=== PATIENT | female | born 1990 | race Hispanic/Latino ===

== ENCOUNTER 2018-02-20 13:57 | Day surgery (SDC) | payer OTHER, SELFPAY ==
[2018-02-20] VITALS (7 sets, daily range): BP systolic 106–129; BP diastolic 77–89; PULSE 65–88; RESP 10–16; TEMP 36.1–36.7; O2SAT 98–100; BMI 25.7; BMI 25.9
[2018-02-20] MEDS: LACTATED RINGERS 1,000 ML 21 ML IV (14:28)
--- NOTE | 2018-02-20 14:44 | PM.PREOP ---
Pre-operative Note Interval Note Pre-op Check: Yes History & Physical Reviewed by Physician and Yes Exam Performed Changes: No H&P completed within 30 days and has changed as indicated here:: 02/19/18 office note
--- NOTE | 2018-02-20 15:26 | SUR.OPER ---
Lithotomy on padded OR bed, head on pillow, arms secured on padded arm boards at <90 degrees abduction. Legs secured in padded yellow fins stirrups.
--- NOTE | 2018-02-20 15:39 | PM.OP.1 ---
Operative Date/Time/Diagnoses Date of procedure: 02/20/18 Time of procedure: 15:39 Pre-op diagnosis: Retained IUD Post-op diagnosis: same Procedure & Clinicians Procedure: Hysteroscopy with removal of IUD Same procedure as scheduled: Yes Indications: Retained IUD unable to remove in the office Surgeon: Fatou García Click Yes if Unassisted: Yes Anesthesia Type: General Operative Notes Findings: IUD inside uterus otherwise normal findings Closure Type: not applicable Specimen(s): none sent Estimated Blood Loss (mL): 5 Blood products transfused: none Procedure in detail: Patient was brought to the operating room where she underwent general anesthesia. She was placed in Yellofin stirrups and prepped and draped in usual sterile fashion. Antibiotics were not indicated. Warming was in place and pulsatile stockings were in place. Before the start of the procedure a check system was reviewed with the staff in the room. The bladder was drained with an in-and out catheter. A single-tooth tenaculum was placed on the anterior lip of the cervix and the cervix dilated to a # 10 Hegar dilator. The hysteroscope was placed through the cervix into the uterus with saline running in. The IUD strings were found and grasped and the IUD removed without difficulty. Counts of instruments and sponges were correct. Patient went to recovery room in good condition. Complications: none Condition: stable Disposition: same day surgery Plan for aftercare: Home when awake and stable
== END 2018-02-20 17:15 | disposition home or self-care (01) ==
PROVIDERS: PCP Family Medicine; Visit Provider Specialist
PROC: 0UDB8ZZ Extraction of Endometrium, Via Natural or Artificial Opening Endoscopic (ICD-10-PCS; CPT 58558; principal; 2018-02-20 15:00)
PROC: (CPT 58579; 2018-02-20 15:00)
DX: Z30.432 Encounter for removal of intrauterine contraceptive device (principal)
CPT/HCPCS: 58579; 58562; J1100; J1885; J2405; J2704; J3010

== ENCOUNTER → 2018-08-14 15:20 | Outpatient (CLI) | payer OTHER, SELFPAY ==
[2018-08-14 16:25] LABS: Add Manual Diff / Slide Review NO; Basophils Absolute Auto 0 /uL (0-100); Basophils Percent Auto 0.5 % (0-2); Eosinophils Absolute Auto 100 /uL (0-450); Eosinophils Percent Auto 0.8 % (2-4); Hematocrit 39.5 % (36-46); Hemoglobin 13.4 g/dL (12.0-16.0); Lymphocytes Absolute Auto 1700 /uL (1100-4500); Lymphocytes Percent Auto 20.9 % (25-40); Mean Corpuscular Hemoglobin 29.7 PG (26-34); Mean Corpuscular Volume 87.5 fL (80-100); Monocytes Absolute Auto 700 /uL (0-900); Monocytes Percent Auto 7.8 % (3-14); Neutrophils Absolute Auto 5800 /uL (1500-7000); Platelet Count 255 X10^3/uL (150-400); Red Blood Cell Count 4.51 X10^6/uL (4.0-5.2); Red Cell Distribution Width 13.7 % (11.6-14.8); White Blood Cell Count 8.3 X10^3/uL (4.5-11.0)
[2018-08-14 17:29] LABS: HCG Quantitative /Beta subunit 164020 mIU/mL
== END ==
PROVIDERS: PCP Family Medicine; Visit Provider Family Medicine
DX: O02.1 Missed abortion (principal)
CPT/HCPCS: 36415; 84702; 85025

== ENCOUNTER 2018-08-19 09:55 | Day surgery (SDC) | payer OTHER, SELFPAY ==
[2018-08-18 08:40] VITALS: BMI 27.2
[2018-08-19] VITALS (8 sets, daily range): BP systolic 100–131; BP diastolic 65–77; PULSE 81–99; RESP 12–16; TEMP 36.3–36.8; O2SAT 95–100; BMI 26.6
--- NOTE | 2018-08-19 | PATH_ITS ---
[facility] Accession Number: [id number] . 01 Material submitted: . product of conception - POC . 02 Diagnosis: Products Of Conception, Removal: Chorionic villi present consistent with products of conception. BFI/08/21/2018 . 02 Electronically signed: . Elizabeth Perez MD, Pathologist NPI- [id number] . 01 Gross description: . Received in formalin are multiple fragments of carias spongy hemorrhagic tissue (56 grams, 12.5 x 9.5 x 1.5 cm in aggregate). No tissue is identified. Auth Specialist tissue submitted in cassettes A1-A4. ([id number]) /MRV . 02 Pathologist provided ICD-10: O02.1 . 02 CPT . 189831 Performed at: 01 [facility] [address] [id number] MD Nithin Noguera MD Phone: [phone] Performed at: 02 [facility] [id number] [place], [place] [id number] MD Elizabeth Perez MD Phone: [phone]
--- NOTE | 2018-08-19 10:19 | PM.PREOP ---
Pre-operative Note Interval Note History & Physical reviewed/Exam performed by Physician: Yes Changes to H&P: No H&P completed within 30 days and has changed as indicated here:: see out pt note 08/14/[address] Castillo
[2018-08-19] MEDS: LACTATED RINGERS 1,000 ML 42 ML IV (10:20)
[2018-08-19] MEDS: CEFAZOLIN 2 GM/100 ML FROZ.PIGGY IV (10:33)
--- NOTE | 2018-08-19 10:33 | SUR.PREOP ---
Blood sugar and scd ordered, not intended to be and verified with dr cortez.
--- NOTE | 2018-08-19 10:48 | SUR.OPER ---
Lithotomy on padded OR bed, head on pillow, arms secured on padded arm boards at <90 degrees abduction. Legs secured in padded yellow fins stirrups.
--- NOTE | 2018-08-19 11:06 | P.OP_ITS ---
Operative Date/Time/Diagnoses Date of procedure: 08/19/18 Time of procedure: 11:03 Pre-op diagnosis: Missed AB with possible molar Post-op diagnosis: same Procedure & Clinicians Procedure: Suction D&C Same procedure as scheduled: Yes Indications: Missed AB with characteristics of possible molar Surgeon: Fatou García Sampler And Test Preparer: Elise aCstillo Anesthesia Type: General Operative Notes Findings: Moderate amount of retained products of conception normal exam under anesthesia Closure Type: not applicable Specimen(s): other (Uterine contents) Estimated Blood Loss (mL): 100 Procedure in detail: Patient was brought to the operating room where she underwent general anesthesia. She was placed in low Yellofin stirrups and prepped and draped in the usual sterile fashion. Her bladder was drained with an in-and out catheter 2 g Ancef were in prior to beginning of the case. Warming was with blankets. SCDs not indicated due to the short nature of the case. A check system was reviewed with the staff in the room. a single-tooth tenaculum was placed on the anterior lip of the cervix. The uterus was sounded. The cervix was already dilated beyond a 10. Hegar dilator. The suction curette was placed inside of the uterus and tissue was removed followed by sharp curettage and suction twice more. At the end of the case there did not appear to be any remaining tissue and bleeding was minimal. Patient went to recovery room in good condition. Counts of instruments and sponges were correct. Complications: none Condition: stable Disposition: same day surgery Plan for aftercare: Follow-up in 1 week with monitoring of HCG levels
== END 2018-08-19 11:58 | disposition home or self-care (01) ==
PROVIDERS: PCP Family Medicine; Visit Provider Specialist
PROC: (CPT 58120; principal; 2018-08-19 10:45)
DX: O02.1 Missed abortion (principal)
CPT/HCPCS: 59820; J0690; J1100; J1885; J2405; J2704; J3010

== ENCOUNTER → 2018-09-04 17:29 | Outpatient (CLI) | payer OTHER, SELFPAY ==
[2018-09-04 19:03] LABS: HCG Quantitative /Beta subunit 300.85 mIU/mL
== END ==
PROVIDERS: PCP Family Medicine; Visit Provider Specialist
DX: O02.0 Blighted ovum and nonhydatidiform mole (principal)
CPT/HCPCS: 36415; 84702

== ENCOUNTER → 2018-09-26 11:29 | Outpatient (CLI) | payer OTHER, SELFPAY ==
[2018-09-26 14:10] LABS: HCG Quantitative /Beta subunit 29.67 mIU/mL
== END ==
PROVIDERS: PCP Family Medicine; Visit Provider Specialist
DX: O02.1 Missed abortion (principal)
CPT/HCPCS: 36415; 84702

== ENCOUNTER → 2018-10-17 12:28 | Outpatient (CLI) | payer OTHER, SELFPAY ==
[2018-10-17 13:34] LABS: HCG Quantitative /Beta subunit < 2.39 mIU/mL
== END ==
PROVIDERS: PCP Family Medicine; Visit Provider Specialist
DX: O02.1 Missed abortion (principal)
CPT/HCPCS: 36415; 84702

== ENCOUNTER → 2019-01-27 09:23 | Outpatient (CLI) | payer OTHER, SELFPAY ==
[2019-01-27 10:04] LABS: Add Manual Diff / Slide Review NO; Basophils Absolute Auto 0 /uL (0-100); Basophils Percent Auto 0.3 % (0-2); Eosinophils Absolute Auto 100 /uL (0-450); Eosinophils Percent Auto 0.7 % (2-4); Hematocrit 42.1 % (36-46); Hemoglobin 14.1 g/dL (12.0-16.0); Lymphocytes Absolute Auto 2000 /uL (1100-4500); Lymphocytes Percent Auto 28.1 % (25-40); Mean Corpuscular HGB Conc 33.4 % (30-36); Mean Corpuscular Hemoglobin 29.6 PG (26-34); Mean Corpuscular Volume 88.7 fL (80-100); Monocytes Absolute Auto 600 /uL (0-900); Monocytes Percent Auto 7.7 % (3-14); Neutrophils Absolute Auto 4600 /uL (1500-7000); Neutrophils Percent Auto 63.2 % (50-75); Platelet Count 259 X10^3/uL (150-400); Red Blood Cell Count 4.74 X10^6/uL (4.0-5.2); Red Cell Distribution Width 14.3 % (11.6-14.8); White Blood Cell Count 7.2 X10^3/uL (4.5-11.0)
[2019-01-27 10:41] LABS: Appearance Urine UA SL CLOUDY; Bilirubin Urine UA NEGATIVE (NEGATIVE); Glucose Urine UA NEGATIVE (Negative); Ketones Urine UA NEGATIVE (NEGATIVE); Leukocyte Esterase Urine UA 1+ (NEGATIVE); Nitrite Urine UA NEGATIVE (Negative); Occult Blood Urine UA 3+ (Negative); Protein Urine UA NEGATIVE (Negative); Specific Gravity Urine UA <=1.005 (1.000-1.035); Urobilinogen Urine UA 0.2 E.U./dL (0.2)
[2019-01-27 11:12] LABS: Color Urine UA Straw
[2019-01-27 11:13] LABS: Bacteria Urine Moderate (10-30); Hepatitis B Surface Antigen NEGATIVE s/c (NEGATIVE); RBC Urine 1-5/HPF (0-5/HPF); Squamous Epithelial Cell Urine 5-10 /HPF (0-5/HPF); WBC Urine 1-5/HPF (0-5/HPF)
[2019-01-27 11:38] LABS: HIV 1 & 2 Ab/Ag 4th Gen Combo NEGATIVE (NEGATIVE); Hep C Virus Ab w/Reflex Quant NEGATIVE s/c (NEGATIVE)
[2019-01-29 21:41] LABS: RPR Screen Nonreactive (Nonreactive)
== END ==
PROVIDERS: PCP Family Medicine; Visit Provider Family Medicine
DX: Z34.81 Encounter for supervision of other normal pregnancy, first trimester (principal); Z3A.08 8 weeks gestation of pregnancy
CPT/HCPCS: 36415; 80055; 81003; 81015; 86787; 86803; 86850; 86900; 86901; 87086; 87389

== ENCOUNTER → 2019-02-24 11:47 | Outpatient (CLI) | payer OTHER, SELFPAY | PROVIDERS: PCP Family Medicine; Visit Provider Family Medicine | DX: R82.998 Other abnormal findings in urine (principal) | CPT/HCPCS: 87086 ==

== ENCOUNTER → 2019-03-22 09:52 | Outpatient (CLI) | payer OTHER, SELFPAY ==
[2019-03-25 20:09] LABS: AFP, Serum 22.9 ng/mL; Brief History NTD NG; Cigarette Smoker N; Collection Date 111819; Donated Egg N; Donor Egg Age N; Inhibin A, Dimeric 136 pg/mL; Maternal Weight 157 lbs; Number of Fetuses 1; Previous Pregnancy Down Syndro N; hCG, MoM 0.65; hCG, Serum 22.2 IU/mL
== END ==
PROVIDERS: PCP Family Medicine; Visit Provider Family Medicine
DX: Z34.92 Encounter for supervision of normal pregnancy, unspecified, second trimester (principal); Z3A.16 16 weeks gestation of pregnancy; R31.9 Hematuria, unspecified
CPT/HCPCS: 36415; 82105; 82677; 84702; 86336; 87086

== ENCOUNTER → 2019-03-22 09:53 | Outpatient (CLI) | payer OTHER, SELFPAY | PROVIDERS: PCP Family Medicine; Visit Provider Family Medicine | DX: R31.9 Hematuria, unspecified (principal); Z3A.16 16 weeks gestation of pregnancy | CPT/HCPCS: 87086 ==

== ENCOUNTER → 2019-04-19 09:58 | Outpatient (CLI) | payer OTHER, SELFPAY ==
--- NOTE | 2019-04-19 09:59 | DI.US.S_ITS ---
PROCEDURE: US OB >= 14 WEEKS FETUS INDICATIONS: ANATOMY SCAN OUTSIDE/PRIOR DATING DATA: Last menstrual period (LMP): 12/02/18. LMP-based estimated date of delivery (ALF): 09/08/19. First dating scan (date and location): Current study Estimated date of delivery (ALF) from first dating scan: 09/09/19. TECHNIQUE: Real-time scanning was performed of the fetus, with image documentation and biometric measurements. Endovaginal scanning: Not performed COMPARISON: None. FINDINGS: General: A single living intrauterine gestation is present. Presentation: Variable. Placenta: Placental position is posterior, without previa. Amniotic fluid index: 14 cm, normal range is 5-24 cm. heart rate: 147 beats per minute. Maternal cervical canal: 3.5 cm long. Normal lower limit is 2.5 cm. biometrics: Biparietal diameter: 4.4 cm, 19 weeks, 3 days Head circumference: 16.2 cm, 19 weeks, zero days Abdominal circumference: 14.7 cm, 20 weeks and zero days Femur length: 3.1 cm, 19 weeks, 4 days Estimated gestational age from initial scan: not applicable. Composite gestational age from present scan: 19 weeks, 4 days Estimated weight and percentile: 310 g, 47th percentile Measurement variability for biometric dating: +/- 7 days from 14 weeks to 15 weeks 6 days gestation, +/- 10 days from 16 weeks to 21 weeks 6 days gestation, +/- 2 weeks from 22 weeks to 27 weeks 6 days gestation, +/- 3 weeks for 28 weeks gestation or later. weight reference: 4500 g or EFW >90/95% is considered macrosomia or large for gestational age. EFW <10% is small for gestational age. EFW 5% or less is considered intra-uterine growth restriction. Anatomic survey: Neuro: Ventricles are non-dilated at less than 10 mm. Cisterna magna is normal at 3-11 mm. Cerebellum is normal in size and morphology. Nuchal skin fold: Normal at less than 6 mm between 14-21 weeks gestational age. Face: Nose and lips, facial profile are normal. Spine: No evidence for spina bifida. Heart: 4-chambered heart is present, with normal ventricular outflow tracts. Diaphragm: Diaphragm is intact. Stomach: Left-sided stomach is present. Kidneys: No hydronephrosis. Normal is less than 5 mm in 2nd trimester, less than 7 mm in 3rd trimester. Cord: 3-vessel cord has orthotopic insertion. Bladder: Normal in size. Extremities: All 4 extremities identified. IMPRESSION: 1. Single living intrauterine with a composite gestational age by today's scan of 19 weeks, 4 days, in good agreement with the clinically assigned gestational age of 19 weeks, 5 days. 2. Symmetric growth and normal anatomy. Dictated by: Annemarie Cyr M.D. on 04/19/2019 at 18:12 Approved by: Annemarie Cyr M.D. on 04/19/2019 at 18:18
== END ==
PROVIDERS: PCP Family Medicine; Visit Provider Family Medicine
DX: Z36.89 Encounter for other specified antenatal screening (principal); Z34.82 Encounter for supervision of other normal pregnancy, second trimester; Z3A.19 19 weeks gestation of pregnancy
CPT/HCPCS: 76811

== ENCOUNTER → 2019-12-23 11:58 | Outpatient (CLI) | payer OTHER, SELFPAY ==
[2019-12-23 13:27] LABS: Glucose Fasting 103 mg/dL (70-100)
[2019-12-23 14:30] LABS: Glucose Tol Interpretation INTERPRETATION
[2019-12-23 15:06] LABS: Glucose 1 Hour 125 mg/dL (70-170)
[2019-12-23 16:06] LABS: Glucose 2 Hour 108 mg/dL (70-140)
== END ==
PROVIDERS: PCP Family Medicine; Referring Provider Family Medicine; Visit Provider Family Medicine
DX: Z86.32 Personal history of gestational diabetes (principal)
CPT/HCPCS: 36415; 82951; 82952